=== PATIENT | male | born 1995 ===

== ENCOUNTER 2017-08-24 16:45 | Emergency (ER) | payer OTHER ==
[2017-08-24 16:49] VITALS: BP 123/61; BMI 25.4
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
== END 2017-08-24 18:59 ==
LOC: ER 16:55
DX: S20.219A Contusion of unspecified front wall of thorax, initial encounter (principal); R07.89 Other chest pain; V87.7XXA Person injured in collision between other specified motor vehicles (traffic), initial encounter
CPT/HCPCS: 36415; 70450; 71250; 72125; 72170; 99282; 99283